=== PATIENT | male | born 1960 | race Caucasian/White ===

== ENCOUNTER 2019-08-16 12:57 | Observation (INO) | payer BC ==
--- NOTE | 2019-08-02 16:46 | HP ---
HISTORY AND PHYSICAL: DATE OF ADMISSION/SURGERY: 08/16/19 DATE OF OFFICE VISIT: 07/30/19 SURGEON: Marlys Hebert MD * (DICTATED BY RITESH LORA) PROCEDURE: Right total hip arthroplasty. CHIEF COMPLAINT: Right hip pain. HISTORY OF PRESENT ILLNESS: Mr. Aragon is a 59-year-old gentleman who has end -stage osteoarthritis of the right hip. He has failed conservative treatment and elected to proceed with a right total hip arthroplasty. PAST MEDICAL HISTORY: 1. GERD. 2. Hypertension. PAST SURGICAL HISTORY: 1. Right knee arthroscopy. 2. Left knee surgery. 3. Abdominal surgery. CURRENT MEDICATIONS: 1. Omeprazole 20 mg a day. 2. Lisinopril 10 mg a day. 3. Meloxicam 7.5 mg daily. 4. Tramadol 50 mg every 6 hours as needed. ALLERGIES: To PENICILLIN. FAMILY HISTORY: Cancer. SOCIAL HISTORY: This is a 59-year-old gentleman. He lives with his . He does not smoke, use drugs or alcohol. REVIEW OF SYSTEMS: A complete 14-point review of systems was reviewed with the patient. Positive for GERD. He denies history of DVT, PE, hepatitis, HIV, or anesthesia problems. PHYSICAL EXAMINATION GENERAL: He is well developed, well nourished, in no acute distress. VITAL SIGNS: He stands 69 inches tall, weighs 221 pounds. His blood pressure is 142/79, his heart rate is 103. HEENT: Normocephalic, atraumatic. NECK: Supple. No palpable lymph nodes. PULMONARY: The lungs are clear to auscultation bilaterally. CARDIO: Regular rate and rhythm. Strong S1, S2. ABDOMEN: Soft, nontender, nondistended. NEUROLOGICAL: He is alert and oriented x3. MUSCULOSKELETAL: Right lower extremity: The skin is intact. There are no open wounds or abrasions. He walks with an antalgic type gait, favoring his right hip. There is 20-degree flexion contracture of the hips bilaterally with 85 degrees of flexion reproducing severe groin pain, 0 degrees of internal rotation, 15 degrees of external rotation. He is able to dorsiflex, plantarflex. He has a 2+ dorsalis pedis pulse and intact sensation. ASSESSMENT AND PLAN: Mr. Aragon is a 59-year-old gentleman with severe end- stage osteoarthritis of the right hip. He has failed conservative treatment and elected to proceed with a right total hip arthroplasty. The surgery is scheduled for 08/16/[address] Hebert discussed the risks and benefits of the surgery at today's visit and all of his questions were answered. He will follow up with Dr. Hebert 2 weeks after the surgery. RITESH LORA [id number]/[facility] #: [id number] MTDCarla
[~2019-08-16 12:57] MED LIST: Buffered Lidocaine 1% SYRIN* 1 ML/SYRINGE INTRADERM ONE; Dexamethasone IV* 4 MG/ML 1 ML (4 MG) IV SLOW PU ONE; Famotidine IV* 10 MG/ML 2 ML (20 mg) IV ONE; Gabapentin CAP(*) 300 MG PO ONE; Lactated Ringers 1000 ML Bag* 1,000 ML IV SCH; Tranexamic Acid 1,000 MG in NS 0.9% 50 ML IV ONE; celeCOXIB CAP* 200 MG PO ONE
[2019-08-16] MEDS ORDERED: celeCOXIB CAP* 200 MG ONE (13:45)
[2019-08-16] MEDS ORDERED: Dexamethasone IV* 4 MG/ML 1 ML (4 MG) ONE (13:45)
[2019-08-16] MEDS ORDERED: Gabapentin CAP(*) 300 MG ONE (13:45)
[2019-08-16] MEDS ORDERED: ceFAZolin 2 GM PREMIX in ORs 0 GM/0 ML BAG ONE (13:46)
[2019-08-16] MEDS ORDERED: Famotidine IV* 10 MG/ML 2 ML (20 mg) ONE (13:46)
[2019-08-16] MEDS ORDERED: Buffered Lidocaine 1% SYRIN* 1 ML/SYRINGE INTRADERM ONE (13:46)
[2019-08-16] MEDS ORDERED: Clindamycin 900 MG/D5W BAG(*) 900 MG/50 ML BAG IVPB ONE (14:16)
[2019-08-16] MEDS ORDERED: KETAMINE HCL* 50 MG/ML 10 ML VIAL ONE (15:22)
[2019-08-16] MEDS ORDERED: fentaNYL* 50 MCG/ML 5 ML VIAL (250 MCG VIAL) ONE (15:22)
[2019-08-16] MEDS ORDERED: Midazolam* 1 MG/ML 5 ML VIAL (5 MG) ONE (15:22)
[2019-08-16] MEDS ORDERED: ROPIVACAINE 5 MG/ML 30 ML BTL (0.5%) ONE (15:31)
[2019-08-16] MEDS ORDERED: Lidocaine 2% PF * 5 ML VIAL ONE (15:34)
[2019-08-16] MEDS ORDERED: Propofol* 10 MG/ML 20 ML BTL ONE (15:34)
[2019-08-16] MEDS ORDERED: Rocuronium* 10 MG/ML VIAL ONE (15:34)
[2019-08-16] MEDS ORDERED: Phenylephrine 40 MCG/ML SYRINGE ONE (16:12)
[2019-08-16] MEDS ORDERED: Scopolamine 1.5 mg* PATCH TRANSDERM PRN (16:26)
[2019-08-16] MEDS ORDERED: oxyCODONE TAB* 5 MG TAB PO PRN (16:26)
[2019-08-16] MEDS ORDERED: Morphine 4 MG/ML VIAL (1 ml) 4 MG/ML VIAL IV PRN (16:26)
[2019-08-16] MEDS ORDERED: DiMENhydriNATE IV* 50 MG/ML VIAL IV PUSH PRN (16:26)
[2019-08-16] MEDS ORDERED: Naloxone* 0.4 MG/ML 1 ML VIAL IV PRN (16:26)
[2019-08-16] MEDS ORDERED: EPHEDrine (Pressors)* 50 MG/ML VIAL ONE (16:32)
[2019-08-16] MEDS ORDERED: Phenylephrine 10 MG/ML VIAL* 1 ML VIAL ONE (16:33)
[2019-08-16] MEDS ORDERED: Ondansetron INJ* 2 MG/ML VIAL IV PRN (16:46)
[2019-08-16] MEDS ORDERED: Ondansetron ODT TAB* 4 MG PO PRN (16:46)
[2019-08-16] MEDS ORDERED: Cyclobenzaprine TAB* 10 MG PO PRN (16:46)
[2019-08-16] MEDS ORDERED: diPHENhydraMINE IV* 50 MG/ML 1 ml VIAL (BENADRYL) IV PRN (16:46)
[2019-08-16] MEDS ORDERED: diPHENhydraMINE PO* 25 MG PO PRN (16:46)
[2019-08-16] MEDS ORDERED: Magnesium Hydroxide LIQ* 30 ML UDC PO PRN (16:46)
[2019-08-16] MEDS ORDERED: Morphine INJ* 2 MG/ML 1 ML SYRINGE (TWO MG - NEW SYRINGE VERSION) IV PRN (16:46)
[2019-08-16] MEDS ORDERED: oxyCODONE/Acetamin 5/325 MG* TAB PO PRN ×2 (16:46)
[2019-08-16] MEDS ORDERED: Morphine 10 MG/ML VIAL (1 ml) ONE (16:49)
[2019-08-16] MEDS ORDERED: Ondansetron INJ* 2 MG/ML VIAL ONE (17:10)
[2019-08-16] MEDS ORDERED: Glycopyrrolate IV* 0.2 MG/ML 1 ML VIAL ONE (17:10)
[2019-08-16] MEDS ORDERED: Neostigmine Methylsulfate* 3 MG/3 ML SYRINGE ONE (17:12)
[2019-08-16] MEDS ORDERED: fentaNYL* 50 MCG/ML 2 ML VIAL (100 MCG VIAL) ONE (18:24)
[2019-08-16] MEDS: fentaNYL* 50 MCG/ML 2 ML VIAL (100 MCG VIAL) IV PRN ×2 (18:27→18:57)
[2019-08-16] MEDS ORDERED: oxyCODONE TAB* 5 MG TAB ONE (19:31)
--- NOTE | 2019-08-16 20:41 | OP ---
Operative Report - Blank - Operative Report Date of Operation: 08/16/19 Note: EM SANTANA 1960 Date Of Surgery: 08/16/19 Marlys Hebert MD In [employer] Suspension Coordinator: Elda AWAD did help throughout the procedure with preparation of the hip, wound retraction, manipulation of the hip, and wound closure. Anesthesiologist: Maria Alejandra Navarro MD Anesthesia Type: General Preoperative Diagnosis: Right severe degenerative osteoarthritis of the hip Postoperative Diagnosis: As above with Acetabular subchondral cysts Procedure Performed: Right Total Hip Arthroplasty with acetabular bone grafting Complications: None Specimen: Femoral head and acetabular reamings sent to pathology. Hardware used: This is uncemented Jose Luis total hip arthroplasty hardware for the femur a size 7 accolade II with 127 degree neck femoral component, for the acetabulum a size 52E trident II tritanium cluster hole shell, 2 15 mm screws, for the insert a size 36E trident X3 polyethylene insert, and for the femoral head a size 36 - 5 ceramic [id number] femoral head. Brief history/Indication: EM SANTANA was known in clinic and had a history of severe right hip pain. He failed conservative treatment with anti- inflammatories, pain pills, intra-articular injections and physical therapy. He elected to undergo right total hip arthroplasty due to continued pain and decreased quality of life. Radiographs showed severe end stage osteoarthritis of the hip with bone on bone contact. Informed consent was obtained from the patient. He understood the risks of surgery included but were not limited to: bleeding, infection, damage to nearby structures, intraoperative fracture, nerve palsy, failure of the hardware, early loosening, stiffness or loss of motion, dislocation, leg length discrepancy, anesthesia complications, stroke, heart attack, blood clot and . He wished to proceed. Intra-Operative findings: Intraoperatively the patient was noted to have severe loss of cartilage of the acetabulum and femoral head. The femoral head was deformed and there were comminuted bone fragments in the joint. The acetabulum had extensive subchondral cysts in the anterior wall. Description of the Procedure: EM SANTANA was identified in the preanesthesia unit. His right hip was marked as the correct operative side. Informed consent was signed and placed in the chart. The patient was taken to the operating room and placed under anesthesia without complication. A villalobos catheter was placed. The patient was placed on the peg board with all bony prominences well padded. The right lower extremity was prepped and draped in the usual sterile fashion. Preoperative time -out was made to correctly identify the patient, side and site. Appropriate intraoperative antibiotics were given within one hour of incision. A standard posterior incision was made and carried sharply down to the lateral fascia. A new 10 blade was used to make an incision in the fascia in line with the skin incision. A charnley retractor was placed. The piriformis and conjoined tendons were identified and elevated off the posterolateral femur using electrocautery. These were tagged with number 5 Ethibond. Next electrocautery was used to make a posterolateral capsular flap and this was tagged with number 5 Ethibonds. The hip was carefully dislocated. Lesser trochanter to the center of the femoral head was measured at 57 mm. The oscillating saw was used to make the femoral neck cut. The femoral head was carefully removed. The femoral head was severely worn and deformed. There were multiple bony fragments in the joint. The femur was retracted anteriorly and the acetabular retractors were placed. Long-handled knife was used to sharply remove any remaining labrum from the acetabular rim. The acetabulum was sequentially reamed up to a size 52. A bleeding subchondral bone bed was obtained. A trial liner was placed and had excellent fit and stability. There was an extensive anterior subchondral cyst. Acetabular reamings and femoral head autograft was used to pack the cystic area. A 52E cup with 2 screws was placed and had excellent stability with appropriate anteversion and abduction angle. A size 36E polyethylene liner was impacted into the acetabular shell. The liner was checked for stability and was stable. Next attention was turned to preparation of the femoral canal. A canal finder was used to enter the proximal femur. The femoral canal was sequentially broached up to a size 7 femoral broach trial. A trial neck and 36 - 5 trial femoral head was chosen. Lesser trochanter to center of the femoral head measurement was satisfactory. The hip was reduced and taken through a range of motion. The hip was stable in all positions with good soft tissue tension and appropriate leg lengths. The hip was dislocated and all trials were removed. The final implant chosen was a accolade II size 7. This stem was impacted into the femoral canal without difficulty. The stem was stable with appropriate anteversion. The femoral head chosen was a 36 - 5 ceramic head. The head was impacted onto the femoral neck without difficulty. The final lesser trochanter to center of the femoral head measurement was satisfactory. The hip was reduced and taken through a range of motion. The hip was stable in all positions with good soft tissue tension and appropriate leg lengths. The hip was copiously irrigated with sterile saline. The previously tagged capsule and tendons were repaired to the posterolateral femur through two trochanteric drill holes. The lateral fascia layer was closed using number 1 vicryls. The rest of the incision was closed in a layered fashion using 0 and 2-0 vicryls. The skin was closed using 3-0 monocryl suture and Dermabond. Sterile adaptic, 4x4s and paper tape was used to cover the incision. The patients anesthesia was reversed without difficulty. He was taken to the PACU in stable condition. Intended weight-bearing will be as tolerated with posterior hip precautions.
[2019-08-16] MEDS ORDERED: Pantoprazole TAB * 40 MG TAB PO SCH ×2 (21:00→23:00)
[2019-08-16] MEDS: Lactated Ringers 1000 ML Bag* 1,000 ML IV SCH (21:19)
--- NOTE | 2019-08-16 21:39 | CONS ---
CC: Dr. Marlys Hebert; Dr. Bert Delarosa * CONSULTATION REPORT: DATE OF CONSULT: 08/16/19 PRIMARY CARE PHYSICIAN: Dr. Delarosa. REFERRING PHYSICIAN: Dr. Marlys Hebert. REASON FOR CONSULTATION: Postop medical management. HISTORY OF PRESENT ILLNESS: This is a 59-year-old male with past medical history of osteoarthritis with end-stage arthritis of the right hip, status post right total hip replacement performed today, also history of some arrhythmia, initially was told was tachyarrhythmia but later was told it was bradyarrhythmia and was to be started on nadolol today postoperatively. The patient otherwise offers no symptoms. He still says that he does not feel completely back to his baseline as he was examined in the postanesthesia care unit, but he was completely oriented, the was at bedside. The patient offers no complaints at this point. Denies any chest pain or shortness of breath. PAST MEDICAL HISTORY: History of hypertension, gastroesophageal reflux disease , chronic back pain due to scoliosis and ankylosing spondylitis, borderline diabetes and as mentioned, some cardiac workup which initially said was tachycardic but later was told that it was bradycardic and further supervisor hydrochloric area recommended the patient to be started on nadolol postoperatively. PAST SURGICAL HISTORY: Include right knee arthroscopy, left knee open surgery, exploratory laparotomy for abdominal pain 2 years ago to rule out any malignancies, right total hip performed today. HOME MEDICATIONS: Include: 1. Omeprazole 20 mg at bedtime. 2. Lisinopril 10 mg daily at bedtime. 3. Tramadol 50 mg p.o. b.i.d. 4. Meloxicam 7.5 mg oral daily. 5. Nadolol 20 mg to be started after surgery today. ALLERGIES: The patient is allergic to PENICILLIN, which causes severe throat swelling; LATEX, which causes rash; GRAPE JUICE causes hives and difficulty breathing; and environmental allergies causes itching and swelling and red watery eyes. FAMILY HISTORY: Mother of stomach cancer at age 71. Father at age 72 with prostate cancer. Sister at age 53 with ovarian cancer. SOCIAL HISTORY: He is a 59-year-old gentleman who lives with his . Denies any smoking, alcohol, or drug use and his , Roselia is his healthcare proxy and he is otherwise full code. REVIEW OF SYSTEMS: A 14-point review of systems did not reveal any information other than what is stated in the HPI. PHYSICAL EXAM: Vital signs postoperatively, BP was notably 116/82, heart rate 88, respiration rate 14, saturating 100% on 3 L nasal cannula, temperature was recorded at 96.8 with a maximum temperature today 98.1 upon arrival to the OR. Head and Neck Examination: Atraumatic, normocephalic. Bilateral pupils are reactive. Oral mucosa was moist. Neck: Supple. No jugular venous distention. Heart Examination: S1, S2. Regular rate and rhythm. Lungs: Clear to auscultation bilaterally. No wheezing, rhonchi, or rales. Abdomen: Soft, nontender, nondistended. Extremities: No cyanosis, clubbing, or edema. DIAGNOSTIC STUDIES/LAB DATA: No labs were performed today. Imaging: The patient had a hip x-ray intraoperatively, which just shows intraoperative controlled film and postoperative hip x-rays suggest hip was aligned properly according to Dr. Hebert who was also at bedside during my evaluation. IMPRESSION: This is a 59-year-old gentleman with history of hypertension and some cardiac arrhythmia, was to be started on nadolol today and osteoarthritis, status post right hip replacement and chronic back pain due to scoliosis and ankylosing spondylitis, here for postoperative blood pressure management. ASSESSMENT: 1. Osteoarthritis, status post right total hip. Rest of the care per Ortho. 2. History of hypertension and cardiac arrhythmia, to be started on nadolol. For now, we will hold the lisinopril and monitor blood pressure. We will also place the patient on the pattern painter to rule out any cardiac arrhythmia or drop in his heart rate given this is a new medication that he is being started on. We will monitor his blood pressure and his heart rate and titrate blood pressure medications accordingly. 3. History of gastroesophageal reflux disease. Restart his omeprazole. 4. DVT prophylaxis, on Eliquis per Ortho. 5. Code status: Full code. [id number]/[facility] #: [id number] MTDD
[2019-08-16] MEDS: Docusate CAP* 100 MG PO SCH (23:02)
[2019-08-16] MEDS: Acetaminophen TAB* 325 MG PO SCH (23:03)
[2019-08-16] MEDS: Magnesium Hydroxide LIQ* 30 ML UDC PO SCH (23:06)
[2019-08-16] MEDS: Nadolol TAB* 40 MG PO SCH (23:30)
[2019-08-16] MEDS: Clindamycin 600 MG/D5W BAG(*) 600 MG/50 ML BAG IV SCH (23:56)
[2019-08-17 06:51] LABS: Hematocrit 37 % (42-52); Hemoglobin 12.7 g/dL (14.0-18.0); Mean Platelet Volume 10.5 fL (7.4-10.4); Platelet Count 165 10^3/uL (150-450)
[2019-08-17 07:07] LABS: BUN/Creatinine Ratio 16.3 (8-20); Calcium 9.2 mg/dL (8.6-10.3); EGFR African American 94.1 (>60); EGFR Non-African American 77.8 (>60); Potassium 4.3 mmol/L (3.5-5.0)
[2019-08-17] MEDS: Acetaminophen TAB* 325 MG PO SCH ×2 (07:10→12:24)
--- NOTE | 2019-08-17 08:10 | PN ---
Progress Note - Progress Note Date of Service: 08/17/19 SOAP: Subjective: Pt. is alert, pain is moderate. Objective: Vital Signs: Temp Pulse Resp BP Pulse Ox 97.2 F 71 17 107/47 98 08/17/19 07:39 08/17/19 07:39 08/17/19 07:39 08/17/19 07:39 08/17/19 07:39 Laboratory Results - last 24 hr 08/17/19 08/17/19 06:27 06:29 Hgb 12.7 L Hct 37 L Plt Count 165 MPV 10.5 H Sodium 136 Potassium 4.3 Chloride 102 Carbon Dioxide 30 Anion Gap 4 BUN 16 Creatinine 0.98 Est GFR ( Amer) 94.1 Est GFR (Non-Af Amer) 77.8 BUN/Creatinine Ratio 16.3 Glucose 136 H Calcium 9.2 RLE - thigh swollen but soft. dressing c/d/i. distally + df/pf, full sens lt. 2+ dp pulse. Assessment: 59 yo M pod 1 s/p RTHA Plan: eliquis bid pt/ot post hip precautions wbat plan d/c to home today with vns.
[2019-08-17] MEDS: Clindamycin 600 MG/D5W BAG(*) 600 MG/50 ML BAG IV SCH ×2 (08:20→15:24)
[2019-08-17] MEDS: Magnesium Hydroxide LIQ* 30 ML UDC PO SCH (08:20)
[2019-08-17] MEDS: Docusate CAP* 100 MG PO SCH (08:21)
[2019-08-17] MEDS: oxyCODONE TAB* 5 MG TAB PO PRN ×2 (08:22→12:24)
[2019-08-17] MEDS: Nadolol TAB* 40 MG PO SCH (08:22)
[2019-08-17] MEDS: Lactated Ringers 1000 ML Bag* 1,000 ML IV SCH (08:30)
[2019-08-17] MEDS ORDERED: Vitamin THERAPEUTIC TAB PO SCH (09:00)
[2019-08-17] MEDS ORDERED: Apixaban* 2.5 MG TAB PO SCH (09:00)
[2019-08-17 09:58] LABS: HIV 4th Generation Nonreactive (Nonreactive)
[2019-08-17 10:04] LABS: Hepatitis B Surface Ab Not Immune (Immune)
[2019-08-17 10:05] LABS: Hepatitis C Antibody Negative (Negative)
[2019-08-17 10:42] LABS: Hepatitis B Surface Antigen Nonreactive (Nonreactive)
[2019-08-17 12:25] VITALS: BP 107/56
--- NOTE | 2019-08-17 20:41 | DS ---
DISCHARGE SUMMARY: DATE OF ADMISSION: 08/16/19 DATE OF DISCHARGE: 08/17/19 SURGEON: Marlys Hebert MD.* (DICTATED BY RITESH LORA) PRINCIPAL DIAGNOSIS: Right hip osteoarthritis. DISCHARGE DIAGNOSIS: Right hip osteoarthritis. DISCHARGE DISPOSITION: Discharged home in stable condition. HISTORY OF PRESENT ILLNESS: Mr. Aragon is a 59-year-old gentleman with severe end-stage osteoarthritis of the right hip. He has failed conservative treatment and elected to proceed with a right total hip arthroplasty. HOSPITAL COURSE: Mr. Aragon was admitted electively to the hospital on and underwent a right total hip arthroplasty. He tolerated the procedure well. Postoperatively, he was placed on Eliquis 2.5 mg every 12 hours for DVT prophylaxis. On postoperative day 1, his H and H was 12 and 37. At the time of discharge, he was afebrile, and he was ambulating well. His vital signs were stable. DISCHARGE MEDICATIONS: 1. Percocet 5/325 one to two tabs every 4 to 6 hours as needed for pain. 2. Colace 100 mg tabs 2 to 3 daily for constipation. 3. Flexeril 10 mg every 8 hours as needed for muscle spasms. 4. Eliquis 2.5 mg every 12 hours for 30 days. 5. Pepcid 20 mg daily. 6. Gabapentin 600 mg daily. 7. Nadolol 20 mg a day. 8. Protonix 40 mg a day. PHYSICAL EXAMINATION UPON DISCHARGE: He was afebrile. His vital signs were stable. His wound was clean and dry. He was ambulating well with the aid of a walker. He was able to dorsiflex and plantarflex with a 2+ dorsalis pedis pulse and intact sensation. DISCHARGE INSTRUCTIONS: He was discharged home. He was given Percocet for pain , Flexeril for muscle spasms, Colace for constipation, and Eliquis 2.5 mg to take twice a day for 30 days for DVT prophylaxis. He is going home with home VNS services through [facility] and getting home physical therapy. He is weightbearing as tolerated with posterior hip precautions, and Dr. Hebert will see him in clinic 2 weeks. RITESH LORA [id number]/[facility] #: [id number] ARLET
[2019-08-19] MEDS ORDERED: Scopolamine PATCH Remove* 1 NOTE MISC PATCH OFF ONE (16:28)
== END 2019-08-17 16:10 | disposition home or self-care (01) ==
LOC: OR 12:57 → SSU 16:46 → INTOOBSV 16:46 → UNDOADMIN 23:50 → SSU 23:50
PROVIDERS: ADMIT Orthopaedic Surgery Adult Reconstructive Orthopaedic Surgery; ATTEND Orthopaedic Surgery Adult Reconstructive Orthopaedic Surgery
DX: M16.11 Unilateral primary osteoarthritis, right hip (principal); K21.9 Gastro-esophageal reflux disease without esophagitis; I10 Essential (primary) hypertension; Z88.0 Allergy status to penicillin; M54.9 Dorsalgia, unspecified; R00.0 Tachycardia, unspecified; Z79.899 Other long term (current) drug therapy; Z79.01 Long term (current) use of anticoagulants; M41.9 Scoliosis, unspecified
CPT/HCPCS: 36415; 80048; 85014; 85018; 85049; 86706; 86803; 87340; 87389; 88304; 88311; 96365; 96366; 96375; 96376; A9270-GY; C1713; C1776; G0378; J0690; J1100; J2250; J2270; J2405; J2704; J2710; J2795; J3010

== ENCOUNTER 2019-09-27 11:11 | Inpatient (IN) | payer BC ==
--- NOTE | 2019-09-11 18:39 | HP ---
HISTORY AND PHYSICAL: DATE OF ADMISSION: 09/27/19 ATTENDING PROVIDER: Dr. Hebert * (DICTATED BY RITESH LOPEZ) HISTORY OF PRESENT ILLNESS: Mr. Aragon is a 59-year-old male who has just underwent a right total hip arthroplasty but he continues to have severe left hip pain due to end-stage hip osteoarthritis. The left hip has become more and more painful since the initial surgery and he is having pain in the anterior portion of his thigh and groin. He has failed conservative management and would like to proceed with a left total hip arthroplasty at this point. PAST MEDICAL HISTORY: 1. Lumbar spine pain. 2. Bilateral knee osteoarthritis. 3. Hypertension. PAST SURGICAL HISTORY: 1. Left knee reconstruction. 2. Right knee arthroscopy. 3. Exploratory surgery of the stomach. 4. Right total hip arthroplasty. MEDICATIONS: 1. Omeprazole. 2. Lisinopril. 3. Meloxicam. 4. Tramadol. 5. Prostate Health. ALLERGIES: PENICILLIN causes trouble breathing. LATEX causes a rash. GRAPE JUICE causes trouble breathing. 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 He does not drink, does not smoke, and does not partake in illicit drug use. FAMILY HISTORY: Noncontributory. REVIEW OF SYSTEMS: General: The patient denies any fevers, chills or night sweats. No known anesthesia problems. HEENT: The patient denies any headaches , lightheadedness or syncopal episodes. Cardiothoracic: The patient denies any chest pain, heart palpitations or edema. Pulmonary: The patient denies any shortness of breath with exertion, chronic cough or COPD. GI: The patient denies any nausea, vomiting, diarrhea, or constipation. : The patient denies any nocturia, urinary frequency or urgency. MSK: The patient admits to chronic lower back pain. Neuro: The patient denies any paresthesias, numbness , or seizures. Integument: The patient denies any abrasions, lesions, rashes, lumps, or open sores. PHYSICAL EXAMINATION GENERAL: The patient is alert and oriented x3 with appropriate mood and affect , appropriately dressed and hygiene. HEENT: Normocephalic, atraumatic. Hearing and vision are grossly intact. PULMONARY: Lungs are clear to auscultation bilaterally with no wheezes, rales, or rhonchi. CARDIO: Regular rate and rhythm. Normal S1 and S2. No appreciable S3 or S4. No murmurs, rubs, or gallops. MSK: Left lower extremity: Inspection of the left hip reveals no erythema or ecchymosis. Skin is warm, dry, and intact. He has 85 degrees of flexion with pain and severe groin pain with that. He has 0 degrees of internal rotation and 15 degrees of external rotation with severe pain. He has difficulty with straight leg raising and abduction because of the pain. Distally, he has full sensation intact to light touch with 5/5 ankle dorsiflexion and plantarflexion strength. He has 2+ dorsalis pedis pulse. IMPRESSION: Severe end-stage left hip osteoarthritis. PLAN: To the OR for a left total hip arthroplasty to be performed by Dr. Marlsy Hebert on 09/27/19. Informed consent had been obtained at previous surgery and has been signed. He will follow up in 10 to 14 days after surgery for suture removal and followup. RITESH LOPEZ [id number]/[facility] #: [id number] ARLET
[~2019-09-27 11:11] MED LIST changes: +Acetaminophen TAB* 325 MG PO ONE; -Dexamethasone IV* 4 MG/ML 1 ML (4 MG) IV SLOW PU ONE; -Famotidine IV* 10 MG/ML 2 ML (20 mg) IV ONE; -Gabapentin CAP(*) 300 MG PO ONE; -Tranexamic Acid 1,000 MG in NS 0.9% 50 ML IV ONE; +Tranexamic Acid 1,000 MG in NS 0.9% 50 ML* (outpatient use) IV SCH
--- OUTSIDE RECORDS SUMMARY | 2019-09-27 11:16 | XMS REPORT | Continuity of Care Document ---
:1960 External Reference #:[id number] Author Name Marlys Hebert M.D. 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 Onset: 02/2019 region and thigh Social History Type Date Description Comments Sex Unknown ETOH Use Denies alcohol use Tobacco Use Start: Unknown Patient has never smoked Smoking Status Reviewed: 07/30/19 Patient has never smoked Exercise Type/Frequency Does not exercise Allergies, Adverse Reactions, Alerts Active Allergies Reaction Severity Comments Date Penicillin Severe 07/18/2019 Medications Active Medications SIG Qnty Indications Ordering Provider Date Omeprazole Bert Delarosa MD 20mg Capsules DR MazainoprBert Blanco MD 10mg Tablets Meloxicam Bert Delarosa MD 7.5mg Tablets Tramadol HCL take 1 tablet by Unknown 50mg Tablets mouth every 6 hours if needed for pain Prostate Health Unknown Capsules Immunizations Description No Information Available Vital Signs Date Vital Result Comment 07/30/2019 2:31pm Height 69 inches 5'9" Weight 221.00 lb Heart Rate 103 /min BP Systolic 142 mmHg BP Diastolic 79 mmHg Body Temperature 98.4 F Pain Level 10 BMI (Body Mass Index) 32.6 kg/m2 07/18/2019 8:50am Height 69 inches 5'9" Weight 226.00 lb Heart Rate 70 /min BP Systolic 136 mmHg BP Diastolic 90 mmHg Respiratory Rate 18 /min Body Temperature 98.4 F Pain Level 10 BMI (Body Mass Index) 33.4 kg/m2 Results Test Acquired Date Facility Test Result H/L Range Note CBC Auto 07/30/2019 [facility] White Blood 7.9 10^3/uL Normal 3.5-10.[address] [place] [address] [phone] Red Blood Count 4.88 10^6/uL Normal 4.18-5.48 Hemoglobin 14.8 g/dL Normal 14.0-18.0 Hematocrit 44 % Normal 42-52 Mean Corpuscular Volume 90 fL Normal 80-94 Mean Corpuscular Hemoglobin 30 pg Normal 27-31 Mean Corpuscular HGB Conc 34 g/dL Normal 31-36 Red Cell Distribution Width 13 % Normal 10-15 Platelet Count 206 10^3/uL Normal 150-450 Mean Platelet Volume 10.7 fL High 7.4-10.4 Abs Neutrophils 5.2 10^3/uL Normal 1.5-7.7 Abs Lymphocytes 2.0 10^3/uL Normal 1.0-4.8 Abs Monocytes 0.6 10^3/uL Normal 0-0.8 Abs Eosinophils 0.1 10^3/uL Normal 0-0.6 Abs Basophils 0.0 10^3/uL Normal 0-0.2 Abs Nucleated RBC 0.0 10^3/uL Granulocyte % 65.8 % Lymphocyte % 25.1 % Monocyte % 7.3 % Eosinophil % 1.2 % Basophil % 0.6 % Nucleated Red Blood Cells % 0.1 Inr/Protime 07/30/2019 [facility] Inr 1.08 Normal 0.82-1.[address] [place] [address] [phone] Laboratory test 07/30/2019 [facility] Partial 29.0 Normal 26.0 -38.0 finding [address] [facility] [place] [address] Time PTT [phone] Urinalysis 07/30/2019 [facility] Urine Color Yellow Profile [address] [place] [address] [phone] Urine Appearance Clear Urine Specific Henley 1.027 Normal 1.010-1.030 Urine pH 5.0 Normal 5-9 Urine Urobilinogen Negative Negative Urine Ketones 1+ Abnormal Negative Urine Protein Negative Negative Urine Leukocytes Negative Negative Urine Blood Negative Negative Urine Nitrite Negative Negative Urine Bilirubin Negative Negative Urine Glucose Negative Negative Comp Metabolic 07/30/2019 [facility] Sodium 138 mmol/L Normal 135-[address] [place] [address] [phone] Potassium 4.4 mmol/L Normal 3.5-5.0 Chloride 102 mmol/L Normal 101-111 Co2 Carbon Dioxide 28 mmol/L Normal 22-32 Anion Gap 8 mmol/L Normal 2-11 Glucose 105 mg/dL High 70-100 Blood Urea Nitrogen 26 mg/dL High 6-24 Creatinine 1.17 mg/dL Normal 0.67-1.17 BUN/Creatinine Ratio 22.2 High 8-20 Calcium 10.3 mg/dL Normal 8.6-10.3 Total Protein 7.0 g/dL Normal 6.4-8.9 Albumin 4.5 g/dL Normal 3.2-5.2 Globulin 2.5 g/dL Normal 2-4 Albumin/Globulin Ratio 1.8 Normal 1-3 Total Bilirubin 0.90 mg/dL Normal 0.2-1.0 Alkaline Phosphatase 84 U/L Normal 34-104 Alt 12 U/L Normal 7-52 Ast 14 U/L Normal 13-39 Egfr Non- 63.4 >60 Egfr 76.7 >60 2 Type & Screen 07/30/2019 [facility] Patient Blood Type AB Positive [address] [place] [address] [phone] Antibody Screen NEGATIVE Urine Culture And 07/30/2019 [facility] Urine Culture SEE RESULT [address] [place] [address] [phone] 1 Standard intensity warfarin therapeutic range: 2.0-3.0 High intensity warfarin therapeutic range: 2.5-3.5 2 Because ethnic data is not always readily available, this report includes an eGFR for both -Americans and non- Americans. The National Kidney Disease Education Program (NKDEP) does not endorse the use of the MDRD equation for patients that are not between the ages of 18 and 70, are , have extremes of body size, muscle mass, or nutritional status, or are non- or non-. According to the National Kidney Foundation, irrespective of diagnosis, the stage of the disease is based on the level of kidney function: Stage Description GFR(mL/min/1.73 m(2)) 1 Kidney damage with normal or decreased GFR 90 2 Kidney damage with mild decrease in GFR 60-89 3 Moderate decrease in GFR 30-59 4 Severe decrease in GFR 15-29 5 Kidney failure <15 (or dialysis) 3 SEE RESULT BELOW Name: EM SANTANA : [address]: Marlys Hebert MD Acct: [id number] Unit: [id number] AGE: 59 Location: [facility] Re07/30/19 SEX: M Status: REG REF SPEC: [id number] JORDAN: 07/30/19 [facility] DR: Marlys Hebert MD REQ: [id number] RECD: 07/30/19 STATUS:COMP _ SOURCE: URINE SPDESC: ORDERED: Urine Culture Procedure Result Reported Site Urine Culture Final 07/31/19- 1613 ML No Growth (<1,000 CFU/mL) * ML - Main Lab . END OF REPORT DEPARTMENT OF PATHOLOGY, [address] [place] [address] Josué Rg M.D. Director [facility] # [id number] Procedures Description No Information Available Medical Devices Description No Information Available Encounters Type Date Location Provider Dx Diagnosis Office Visit 07/18/2019 [facility] Marlys Hebert, M25.551 Pain in right hip 8:30a at [place] [facility] M25.552 Pain in left hip M16.0 Bilateral primary osteoarthritis of hip Assessments Date Code Description Provider 07/30/2019 M25.551 Pain in right hip Marlys Hebert M.D. 07/30/2019 M16.0 Bilateral primary osteoarthritis of hip Marlys Hebert M.D. 07/18/2019 Kapil5.551 Pain in right hip Marlys Hebert M.D. 07/18/2019 M25.552 Pain in left hip Marlys Hebert M.D. 07/18/2019 M16.0 Bilateral primary osteoarthritis of hip Marlys Hebert M.D. Plan of Treatment Future Appointment(s):09/03/2019 9:45 am - Marlys Hebert M.D. at [facility] at Pjemfr2607/30/2019 - Marlys Hebert M.D.M25.551 Pain in right hipFollow up:Follow up: 2 weeks after [id number] Bilateral primary osteoarthritis of hip Functional Status Description No Information Available Mental Status Description No Information Available Referrals Description No Information Available
--- OUTSIDE RECORDS SUMMARY | 2019-09-27 11:16 | XMS REPORT | Continuity of Care Document ---
:1960 External Reference #:[id number] Author Name Marlys Hebert M.D. (transmitted by agent of provider Luanne Bedoya) Address [address] [place] [address] [place] [address] Care Team Providers Name Role Phone Bert Delarosa MD - Internal Medicine Care Team Information Hospital Orderly Problems Active Problems Provider Date Localized, primary osteoarthritis of the pelvic Marlys Hebert M.D. Onset: 02/2019 region and thigh Social History Type Date Description Comments Sex Unknown ETOH Use Denies alcohol use Tobacco Use Start: Unknown Patient has never smoked Smoking Status Reviewed: 09/03/19 Patient has never smoked Exercise Type/Frequency Does not exercise Allergies, Adverse Reactions, Alerts Active Allergies Reaction Severity Comments Date Penicillin Severe 07/18/2019 Medications Active Medications SIG Qnty Indications Ordering Date Provider Percocet 1-2 by mouth 70tabs Marlys Hebert, 08/17/2019 5-325mg Tablets every 4-6 hours M.D. as needed pain Cyclobenzaprine HCL take 1 tab by 90tabs Marlys Hebert, 08/17/2019 10mg mouth 2-3 times M.D. Tablets a day as needed Eliquis take one tab by 60tabs Marlys Hebert, 08/17/2019 2.5mg Tablets mouth twice M.D. daily x 4 weeks Colace 1 tab by mouth 90caps Marlys Hebert, 08/17/2019 100mg Capsules 2-3 times a day M.D. as needed Omeprazole Bert Delarosa, 20mg Capsules DR FERREIRA Lisinopril Bert Delarosa, 10mg Tablets MeloxicBert Silva, 7.5mg Tablets Tramadol HCL take 1 tablet Unknown 50mg Tablets by mouth every 6 hours if needed for pain Prostate Health Unknown Capsules Immunizations Description No Information Available Vital Signs Date Vital Result Comment 09/03/2019 9:18am Height 67.75 inches 5'7.75" Weight 221.75 lb Heart Rate 66 /min BP Systolic 116 mmHg BP Diastolic 78 mmHg Respiratory Rate 12 /min Body Temperature 97.3 F Pain Level 2 BMI (Body Mass Index) 34.0 kg/m2 07/30/2019 2:31pm Height 69 inches 5'9" Weight 221.00 lb Heart Rate 103 /min BP Systolic 142 mmHg BP Diastolic 79 mmHg Body Temperature 98.4 F Pain Level 10 BMI (Body Mass Index) 32.6 kg/m2 Results Test Acquired Date Facility Test Result H/L Range Note CBC Auto 07/30/2019 [facility] White Blood 7.9 10^3/uL Normal 3.5-10.[address] [place], [place] [address] [phone] Red Blood Count 4.88 10^6/uL Normal 4.18-5.48 [...] Red Blood Cells % 0.1 Inr/Protime 07/30/2019 [facility] Inr 1.08 Normal 0.82-1.[address] [place] [address] [phone] Laboratory test 07/30/2019 [facility] Partial 29.0 Normal 26.0 -38.[address] [place] [address] Time PTT [phone] Urinalysis 07/30/2019 [facility] Urine Color Yellow Profile [address] [place] [address] [phone] Urine Appearance Clear Urine Specific Bor[place] 1.027 Normal 1.010-1.030 Urine pH 5.0 Normal 5-9 Urine Urobilinogen Negative Negative Urine Ketones 1+ Abnormal Negative Urine Protein Negative Negative Urine Leukocytes Negative Negative Urine Blood Negative Negative Urine Nitrite Negative Negative Urine Bilirubin Negative Negative Urine Glucose Negative Negative Comp Metabolic 07/30/2019 [facility] Sodium 138 mmol/L Normal 135-[address] [place] [address] [phone] Potassium 4.4 mmol/L Normal 3.5-5.0 Chloride 102 [...] 76.7 >60 2 Type & Screen 07/30/2019 [facility] Patient Blood Type AB Positive [address] [place] [address] [phone] Antibody Screen NEGATIVE Urine Culture And 07/30/2019 [facility] Urine Culture SEE RESULT [address] [place] [address] [phone] 1 Standard intensity warfarin therapeutic range: 2.0-3.0 [...] [address]: Marlys Hebert MD Acct: [id number] Unit: [id number] AGE: 59 Location: [facility] Re07/30/19 SEX: M Status: REG REF SPEC: [id number] JORDAN: 07/30/19-[address] [facility] [address]: Marlys Hebert MD REQ: [id number] RECD: 07/30/19 STATUS:COMP _ SOURCE: URINE SPDESC: ORDERED: Urine Culture Procedure Result Reported Site Urine Culture Final 07/31/19- 1613 ML No Growth (<1,000 CFU/mL) * ML - Main Lab . END OF REPORT DEPARTMENT OF PATHOLOGY, [address] [place] [address] Josué Rg M.D. Director [facility] # [id number] Procedures Date Code Description Status 08/16/2019 79806 THR Total Hip Replacement Completed 08/16/2019 56574 THR Total Hip Replacement Completed Medical Devices Description No Information Available Encounters Type Date Location Provider Dx Diagnosis Office Visit 08/16/2019 [facility] Eleanor Lutz, I10 Essential ( primary) 10:20a aramis Dill M.D. hypertension Hospitalists I49.9 Cardiac arrhythmia, unspecified Office Visit 07/18/2019 8:30a [facility] Marlys Hebert, M25.551 Pain in right at [place] M.DRose hip M25.552 Pain in left hip M16.0 Bilateral primary osteoarthritis of hip Assessments Date Code Description Provider 09/03/2019 M16.11 Unilateral primary osteoarthritis, Marlys Hebert M.D. right hip 09/03/2019 Z96.641 Presence of right artificial hip Marlys Hebert M.D. joint 09/03/2019 M25.552 Pain in left hip Marlys Hebert M.D. 09/03/2019 M16.12 Unilateral primary osteoarthritis, Marlys Hebert M.D. left hip 08/16/2019 I10 Essential (primary) hypertension Eleanor Lutz M.D. 08/16/2019 M16.11 Unilateral primary osteoarthritis, [facility] HRose Raygoza , RPA-C right hip 08/16/2019 I49.9 Cardiac arrhythmia, unspecified Eleanor Lutz M.D. 08/16/2019 M16.11 Unilateral primary osteoarthritis, Marlsy Hebert M.D. right hip 07/30/2019 M25.551 Pain in right hip Marlys Hebert M.D. 07/30/2019 M16.0 Bilateral primary osteoarthritis of Marlys Hebert M.D. hip 07/18/2019 M25.551 Pain in right hip Marlys Hebert M.D. 07/18/2019 M25.552 Pain in left hip Marlys Hebert M.D. 07/18/2019 M16.0 Bilateral primary osteoarthritis of Marlys Hebert M.D. hip Plan of Treatment 09/03/2019 - Marlys Hebert M.D.M16.11 Unilateral primary osteoarthritis, right hipFollow up:Follow up:Z96.641 Presence of right artificial hip dqfcnM40.552 Pain in left hipFollow up:Follow up: 7-10 days before ttbbwtfF36.12 Unilateral primary osteoarthritis, left hip Functional Status Description No Information Available Mental Status Description No Information Available Referrals Description No Information Available
--- OUTSIDE RECORDS SUMMARY | 2019-09-27 11:16 | XMS REPORT | Continuity of Care Document ---
:1960 External Reference #:[id number] Author Name Marlys Hebert M.D. 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 07/30/2019 M16.0 Bilateral primary osteoarthritis of hip Marlys Hebert M.D. 07/18/2019 M25.551 Pain in right hip Marlys Hebert M.D. 07/18/2019 M25.552 Pain in left hip Marlys Hebert M.D. 07/18/2019 M16.0 Bilateral primary osteoarthritis of hip Marlys Hebert M.D. Plan of Treatment Future Appointment(s):09/03/2019 9:45 am - Marlys Hebert M.D. at [facility] at [id number]/16/2019 2:30 pm - Marlys Hebert M.D. at [facility] at [id number]/30/2019 - Marlys Hebert M.D.M25.551 Pain in right hipFollow up:Follow up: 2 weeks after [id number] Bilateral primary osteoarthritis of hip Functional Status Description No Information Available Mental Status Description No Information Available Referrals Description No Information Available
[2019-09-27] MEDS ORDERED: Midazolam* 1 MG/ML 2 ML VIAL (2 MG) ONE (12:29)
[2019-09-27] MEDS ORDERED: fentaNYL* 50 MCG/ML 2 ML VIAL (100 MCG VIAL) ONE ×3 (12:29→15:46)
[2019-09-27] MEDS ORDERED: Acetaminophen TAB* 325 MG ONE (12:31)
[2019-09-27] MEDS ORDERED: celeCOXIB CAP* 200 MG ONE (12:32)
[2019-09-27] MEDS ORDERED: Clindamycin 900 MG/D5W BAG(*) 900 MG/50 ML BAG IVPB ONE (12:32)
[2019-09-27] MEDS ORDERED: Naloxone* 0.4 MG/ML 1 ML VIAL IV PRN (13:35)
[2019-09-27] MEDS ORDERED: Rocuronium* 10 MG/ML VIAL ONE ×2 (13:56→14:29)
[2019-09-27] MEDS ORDERED: ROPIVACAINE 5 MG/ML 30 ML BTL (0.5%) ONE (14:14)
[2019-09-27] MEDS ORDERED: Propofol* 10 MG/ML 20 ML BTL ONE (14:52)
[2019-09-27] MEDS ORDERED: Dexamethasone IV* 4 MG/ML 1 ML (4 MG) ONE (14:52)
[2019-09-27] MEDS ORDERED: Ondansetron INJ* 2 MG/ML VIAL ONE (15:27)
[2019-09-27] MEDS ORDERED: Sugammadex * 200 MG/2 ML VIAL IV PUSH ONE (15:42)
[2019-09-27] MEDS ORDERED: EPHEDrine (Pressors)* 50 MG/ML VIAL ONE (15:51)
[2019-09-27] MEDS ORDERED: oxyCODONE TAB* 5 MG TAB PO PRN (16:23)
[2019-09-27] MEDS ORDERED: diPHENhydraMINE IV* 50 MG/ML 1 ml VIAL (BENADRYL) IV PRN (16:23)
[2019-09-27] MEDS ORDERED: Ondansetron ODT TAB* 4 MG PO PRN (16:23)
[2019-09-27] MEDS ORDERED: Ondansetron INJ* 2 MG/ML VIAL IV PRN (16:23)
[2019-09-27] MEDS ORDERED: diPHENhydraMINE PO* 25 MG PO PRN (16:23)
[2019-09-27] MEDS ORDERED: Magnesium Hydroxide LIQ* 30 ML UDC PO PRN (16:23)
[2019-09-27] MEDS ORDERED: oxyCODONE/Acetamin 5/325 MG* TAB PO PRN (16:23)
[2019-09-27] MEDS ORDERED: Acetaminophen TAB* 325 MG PO PRN (16:23)
[2019-09-27] MEDS ORDERED: Morphine INJ* 2 MG/ML 1 ML SYRINGE (TWO MG - NEW SYRINGE VERSION) IV PRN (16:23)
[2019-09-27] MEDS ORDERED: HYDROmorphone INJ1* 1 MG/ML SYRINGE ONE (16:32)
[2019-09-27] MEDS: HYDROmorphone INJ1* 1 MG/ML SYRINGE IV PRN ×2 (16:35→16:46)
[2019-09-27] MEDS ORDERED: oxyCODONE/Acetamin 5/325 MG* TAB ONE (17:00)
[2019-09-27] MEDS: oxyCODONE/Acetamin 5/325 MG* TAB PO PRN ×2 (17:01→21:03)
--- NOTE | 2019-09-27 17:43 | OP ---
Operative Report - Blank - Operative Report Date of Operation: 09/27/19 Note: EM SANTANA 1960 Date Of Surgery: 09/27/19 Marlys Hebert MD Eye Glass Frame Polisher: Nawaf AWAD did help throughout the procedure with preparation of the hip, wound retraction, manipulation of the hip, and wound closure. Anesthesiologist: Dr. Kunz Anesthesia Type: Spinal Preoperative Diagnosis: Left severe degenerative osteoarthritis of the hip Postoperative Diagnosis: As above Procedure Performed: Left Total Hip Arthroplasty Complications: None Specimen: Femoral head and acetabular reamings sent to pathology. Hardware used: This is uncemented [place] total hip arthroplasty hardware for the femur a size 7 accolade II with 127 neck angle femoral component, for the acetabulum a size 54E trident II tritanium cluster hole shell with one 20mm screw, for the insert a size 36E trident X 3 polyethylene insert, and for the femoral head a size 36 - 2.5 ceramic biolox V40 femoral head. Brief history/Indication: EM SANTANA was known in clinic and had a history of severe left hip pain. He failed conservative treatment with anti- inflammatories, pain pills, intra-articular injections and physical therapy. He elected to undergo left total hip arthroplasty due to continued pain and decreased quality of life. Radiographs showed severe end stage osteoarthritis of the hip with bone on bone contact. Informed consent was obtained from the patient. He understood the risks of surgery included but were not limited to: bleeding, infection, damage to nearby structures, intraoperative fracture, nerve palsy, failure of the hardware, early loosening, stiffness or loss of motion, dislocation, leg length discrepancy, anesthesia complications, stroke, heart attack, blood clot and . He wished to proceed. Intra-Operative findings: Intraoperatively the patient was noted to have severe loss of cartilage of the acetabulum and femoral head. 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 Description of the Procedure: EM SANTANA was identified in the preanesthesia unit. His left hip was marked as the correct operative side. Informed consent was signed and placed in the chart. The patient was taken to the operating room and placed under anesthesia without complication. A villalobos catheter was placed. The patient was placed on the peg board with all bony prominences well padded. The left lower extremity was prepped and draped in the usual sterile fashion. Preoperative time -out was made to correctly identify the patient, side and site. Appropriate intraoperative antibiotics were given within one hour of incision. A standard posterior incision was made and carried sharply down to the lateral fascia. A new 10 blade was used to make an incision in the fascia in line with the skin incision. A charnley retractor was placed. The piriformis and conjoined tendons were identified and elevated off the posterolateral femur using electrocautery. These were tagged with number 5 Ethibond. Next electrocautery was used to make a posterolateral capsular flap and this was tagged with number 5 Ethibonds. The hip was carefully dislocated. Lesser trochanter to the center of the femoral head was measured at 60 mm. The oscillating saw was used to make the femoral neck cut. The femoral head was carefully removed. The femur was retracted anteriorly and the acetabular retractors were placed. Long-handled knife was used to sharply remove any remaining labrum from the acetabular rim. The acetabulum was sequentially reamed up to a size 54. A bleeding subchondral bone bed was obtained. A trial liner was placed and had excellent fit and stability. A 54E cup with one screw was placed and had excellent stability with appropriate anteversion and abduction angle. A size 36E liner was impacted into the acetabular shell. The liner was checked for stability and was stable. Next attention was turned to preparation of the femoral canal. A canal finder was used to enter the proximal femur. The femoral canal was sequentially broached up to a size 7 femoral broach trial. A trial neck and 36 - 2.5 trial femoral head was chosen. Lesser trochanter to center of the femoral head measurement was satisfactory. The hip was reduced and taken through a range of motion. The hip was stable in all positions with good soft tissue tension and appropriate leg lengths. The hip was dislocated and all trials were removed. The final implant chosen was a accolade size 7. This stem was impacted into the femoral canal without difficulty. The stem was stable with appropriate anteversion. The femoral head chosen was a 36 - 2.5 ceramic head. The head was impacted onto the femoral neck without difficulty. The final lesser trochanter to center of the femoral head measurement was satisfactory. The hip was reduced and taken through a range of motion. The hip was stable in all positions with good soft tissue tension and appropriate leg lengths. The hip was copiously irrigated with sterile saline. The previously tagged capsule and tendons were repaired to the posterolateral femur through two trochanteric drill holes. The lateral fascia layer was closed using number 1 vicryls. The rest of the incision was closed in a layered fashion using 0 and 2-0 vicryls. The skin was closed using 3-0 monocryl suture and Dermabond. Sterile adaptic, 4x4s and paper tape was used to cover the incision. The patients anesthesia was reversed without difficulty. He was taken to the PACU in stable condition. Intended weight-bearing will be as tolerated with posterior hip precautions.
[2019-09-27] MEDS: Lactated Ringers 1000 ML Bag* 1,000 ML IV SCH (18:00)
[2019-09-27] MEDS: Cyclobenzaprine TAB* 10 MG PO PRN (18:29)
--- NOTE | 2019-09-27 20:38 | CONS ---
CC: Dr. Bert Russo; Dr. Marlys Hebert * CONSULTATION REPORT: DATE OF CONSULT: 09/27/19 PRIMARY CARE PROVIDER: Dr. Bert Russo. ATTENDING PHYSICIAN: Dr. Eleanor Lutz (dictated by RITESH Valera). REQUESTING PHYSICIAN IN CONSULTATION: Dr. Marlys Hebert. REASON FOR CONSULTATION: Co-medical management. HISTORY OF PRESENT ILLNESS: Mr. Aragon is a 59-year-old male with a past medical history of hypertension, GERD, and chronic low back pain who [place] [facility] [place] elective left total hip arthroplasty. He is seen postoperatively in the PACU. He reports left hip and lower back pain, reported at 8/10. He has no other complaints today. He denies dizziness, lightheadedness, vision changes, chest pain, shortness of breath, cough, fever, chills, abdominal pain, nausea, vomiting, diarrhea, constipation. PAST MEDICAL HISTORY: 1. Hypertension. 2. GERD. 3. Chronic low back pain. 4. Osteoarthritis, bilateral knees. PAST SURGICAL HISTORY: Left knee reconstruction, right knee arthroplasty, exploratory abdominal lap, right total hip arthroplasty. HOME MEDICATIONS: 1. Cyclobenzaprine 10 mg p.o. q.6 hours p.r.n. 2. Jayshree-[place] Plus Cold 1 cap p.o. b.i.d. p.r.n. 3. Lisinopril 10 mg p.o. at bedtime. 4. Nadolol 20 mg p.o. at bedtime. 5. Omeprazole 20 mg p.o. at bedtime. 6. Oxycodone 5/325 one to two tabs p.o. q.4 hours p.r.n., MDD 10. DRUG ALLERGIES: PENICILLIN, LATEX, SEASONAL ALLERGIES, GRAPE JUICE. FAMILY HISTORY: Sister, ovarian cancer. Father, prostate cancer. Mother, stomach cancer. No family history of heart disease, CVA, diabetes mellitus. SOCIAL HISTORY: The patient denies current or former use of tobacco. He does not drink or use illicit drugs. 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 He lives with his spouse. In the event that he is unable to make his own medical decisions, he has appointed his , Roselia Aragon, to be his surrogate decision maker. REVIEW OF SYSTEMS: A 14-point review of systems has been performed and all the pertinent positives and negatives are in the HPI, all other systems are negative. PHYSICAL EXAM: General: Mr. Aragon is a well-developed, well-nourished, obese, middle-aged white male who is sitting up in bed. He appears somewhat groggy and mildly uncomfortable. HEENT: PERRL. EOMI. Hearing is grossly intact. Oral mucous membranes are mildly dry. The pharynx is clear. The tongue is at midline. Palate elevates symmetrically. Cardiovascular: Regular rate and rhythm with S1, S2 present. No murmurs, rubs, clicks, or gallops. There is no JVD or peripheral edema. Pulmonary: Symmetrical chest expansion without use of accessory muscles. Clear to auscultation bilaterally anteriorly without rhonchi, wheezes, or rales. Abdomen: Obese. Bowel sounds in all quadrants. Soft, nontender to palpation. Musculoskeletal: Left hip with clean , dry, intact dressing in place. The patient reports decreased sensation in right compared to left. Pedal pulses intact bilaterally. Able to move digits distally. Neuro: The patient is awake. He is alert and oriented x3 with cranial nerves II through XII grossly intact. ASSESSMENT AND PLAN: Mr. Aragon is a 59-year-old male with a past medical history of hypertension, gastroesophageal reflux disease, chronic low back pain who [place] [facility] [place] an elective left total hip arthroplasty. The patient will be admitted for: 1. Left total hip arthroplasty. Management per Ortho team. Continue pain medication, bowel regimen, PT. Weightbearing as tolerated. 2. Hypertension. Continue home medications, lisinopril and nadolol, with hold parameters. 3. Chronic pain. Continue home medications, cyclobenzaprine and Percocet, plus additional medications for left hip pain per Ortho. 4. Gastroesophageal reflux disease. Continue omeprazole. 5. DVT prophylaxis: Per Ortho. Apixaban 2.5 mg p.o. b.i.d. 6. Code status: Full code. At this time, the hospitalist team will sign off. Please reconsult if any concerns arise. Thank you for involving us in the care of this patient. TIME SPENT: Approximately 30 minutes was spent on this consultation, greater than half that time was spent [id number] with the patient and his obtaining history, performing physical, and reviewing the plan of care. The case has been discussed with my attending, Dr. Lutz, who is in agreement with the plan of care. NAEEM CARBAJAL, RITESH [id number]/[facility] #: [id number] ARLET
[2019-09-27] MEDS ORDERED: Lisinopril TAB* 10 MG PO SCH (21:00)
[2019-09-27] MEDS ORDERED: Pantoprazole TAB * 40 MG TAB PO SCH (21:00)
[2019-09-27] MEDS: Docusate CAP* 100 MG PO SCH (21:03)
[2019-09-27] MEDS: Magnesium Hydroxide LIQ* 30 ML UDC PO SCH (21:04)
[2019-09-27] MEDS: Clindamycin 600 MG/D5W BAG(*) 600 MG/50 ML BAG IV SCH (22:21)
[2019-09-28] MEDS: oxyCODONE/Acetamin 5/325 MG* TAB PO PRN ×3 (04:45→13:08)
[2019-09-28] MEDS: Lactated Ringers 1000 ML Bag* 1,000 ML IV SCH (04:45)
[2019-09-28] MEDS: Clindamycin 600 MG/D5W BAG(*) 600 MG/50 ML BAG IV SCH ×2 (06:00→13:40)
[2019-09-28 06:39] LABS: Hematocrit 32 % (42-52); Hemoglobin 11.4 g/dL (14.0-18.0); Mean Platelet Volume 10.2 fL (7.4-10.4); Platelet Count 160 10^3/uL (150-450)
[2019-09-28 07:02] LABS: BUN/Creatinine Ratio 21.5 (8-20); Calcium 8.8 mg/dL (8.6-10.3); EGFR African American 99.9 (>60); EGFR Non-African American 82.6 (>60); Potassium 4.1 mmol/L (3.5-5.0)
[2019-09-28] MEDS: Cyclobenzaprine TAB* 10 MG PO PRN (08:40)
[2019-09-28] MEDS: Docusate CAP* 100 MG PO SCH (08:41)
[2019-09-28] MEDS: Magnesium Hydroxide LIQ* 30 ML UDC PO SCH (08:42)
[2019-09-28] MEDS ORDERED: Vitamin THERAPEUTIC TAB PO SCH (09:00)
[2019-09-28] MEDS ORDERED: Apixaban* 2.5 MG TAB PO SCH (09:00)
--- NOTE | 2019-09-28 10:29 | PN ---
Progress Note - Progress Note Date of Service: 09/28/19 SOAP: Subjective: [Pt was seen this am sitting in chair. States that he is doing well. Denies any chest pain, SOB, nausea or vomiting. Ready to go home today. ] Objective: [General: Pt is alert and oriented x3. NAD. MSK, LLE: Dressing of left hip is c/d/i. No drainage or erythema. Dressing was changed today. Incision is c/d/i. +df/pf. NVI distally. Calf soft and non tender. 2+ DP pulse. ] Vital Signs Temp 97.4 F 09/28/19 07:36 Pulse 69 09/28/19 07:36 Resp 18 09/28/19 08:42 BP 104/62 09/28/19 07:49 Pulse Ox 97 09/28/19 07:36 Intake & Output 09/27/19 09/28/19 09/28/19 18:59 06:59 18:59 Intake Total 1650 1530 Output Total 350 1600 100 Balance 1300 -70 -100 Weight 216 lb Intake: IV Fluids 1650 980 LR 1500 980 NS 100ML, Clindamycin 150 600MG IVPB 50 ABX - CLINDAMYCIN 50 Oral 500 Output: Urine 100 Rouse 100 1600 Estimated Blood Loss 250 Assessment: [POD LTHA ] Plan: [PT Percocet for pain relief Eliquis x 30 days DC home today after second PT appointment. ]
--- NOTE | 2019-09-28 10:31 | DS ---
Orthopedic Discharge Summary - Discharge Summary Date of Admission:09/27/19 Date of Discharge: 09/28/2019 Date of Surgery: 09/27/2019 Attending Orthopedic Provider: Dr. Hebert Pre-operative Diagnosis: Left hip osteoarthritis Operative Procedure: Left total hip arthroplasty Disposition of Patient: Home Condition of Patient: Good History: EM SANTANA is a 59 year old M with years of increasingly severe left hip pain. Patient has failed conservative management and has elected to undergo a left total hip replacement Hospital Course: EM was admitted to [facility] on 09/27/19. Patient underwent a left total hip arthroplasty without complication followed by a brief recovery in PACU and transfer to the Short Stay Surgical Unit in stable condition. Physical therapy and occupational therapy also participated in this patients care. Post-op day 1: patient was alert and in no acute distress. Dressing was clean, dry and intact. Operative extremity dorsiflexion and plantarflexion intact, sensation intact to light touch distally, DP2+. Dressing was changed, incision was clean, dry and intact. Patient was deemed to be medically and orthopedically stable for discharge. Physical therapy goals were met. Home Medications Medication Instructions Recorded Confirmed Type Lisinopril [Zestril] 10 mg PO BEDTIME 08/15/19 09/27/19 History Nadolol [Corgard] 20 mg PO QPM 08/15/19 09/27/19 History Omeprazole 20 mg PO BEDTIME 08/15/19 09/27/19 History Cyclobenzaprine TAB* [Flexeril 10 10 mg PO Q6H PRN #90 tab 08/17/19 09/27/19 Rx MG TAB*] Dm/PE/Acetaminophen/Chlorphenr 1 cap PO BID PRN 09/17/19 09/27/19 History [Jayshree-[place] Plus Cold &] oxyCODONE/Acetamin 5/325 MG* 1 - 2 tab PO Q4H PRN MDD 10 09/17/19 09/27/19 History [Percocet 5/325 TAB*] Discharge Instructions following Orthopedic Surgery: Activity: * Weight Bearing as tolerated * Continue physical therapy and occupational therapy exercises as shown Hip replacements: Continue Hip Precautions- do not cross legs or bend greater than 90 degrees/squat Wound care: * OK to shower on post-op day 3, no bathing, swimming, or submerging wound. * Use gentle soap, pat dry. Cover with gauze, SERJIO wrap or tape. * Visiting home nurse to do wound checks. Call Orthopedic office for: * Increased drainage * Redness * Increased pain * Fever Go to ER with shortness of breath or chest pain. Diet: * Regular diet * Increase fluids and fiber to prevent constipation. * Continue to use stool softeners, call office if no bowel motion within 48 hours. Medications See Home Medication List in your packet for medications that you should take after discharge. DVT Prophylaxis: Eliquis Dosin.5 mg, 1 tab every 12 hours x 30 days Pain Control: Percocet Dosin/325 mg 1-2 tabs by mouth every 4-6 hours as needed for pain. Maximum of 10 tabs per day. Please note that Percocet contains Tylenol (acetaminophen). Maximum daily dose of Tylenol is 4000 mg from all sources. Antibiotics are required prior to any dental work. FOLLOW UP: Follow up with Dr. Masood Hebert] Within 10-14 days, call for appointment Please call our office with any questions or concerns ([phone])
[2019-09-28 11:47] VITALS: BP 100/64
[2019-09-28] MEDS ORDERED: Nadolol TAB* 40 MG PO SCH (21:00)
== END 2019-09-28 14:22 | disposition home or self-care (01) | DRG 301 ==
LOC: AA 11:11 → SSU 16:23
PROVIDERS: ADMIT Orthopaedic Surgery Adult Reconstructive Orthopaedic Surgery; ATTEND Orthopaedic Surgery Adult Reconstructive Orthopaedic Surgery
PROC: 0SRB04A Replacement of Left Hip Joint with Ceramic on Polyethylene Synthetic Substitute, Uncemented, Open Approach (ICD-10-PCS; principal; 2019-09-27 14:00)
DX: M16.12 Unilateral primary osteoarthritis, left hip (principal); M87.852 Other osteonecrosis, left femur; Z96.641 Presence of right artificial hip joint; Z96.651 Presence of right artificial knee joint; M17.12 Unilateral primary osteoarthritis, left knee; G89.29 Other chronic pain; M54.5 Low back pain; I11.0 Hypertensive heart disease with heart failure; N18.9 Chronic kidney disease, unspecified; J30.2 Other seasonal allergic rhinitis; E66.9 Obesity, unspecified; K21.9 Gastro-esophageal reflux disease without esophagitis; Z91.040 Latex allergy status; Z88.0 Allergy status to penicillin; Z91.018 Allergy to other foods; Z68.32 Body mass index [BMI] 32.0-32.9, adult
CPT/HCPCS: 36415; 72170; 80048; 85014; 85018; 85049; 88304; 88311; A9270-GY; C1713; C1776; J1100; J1170; J2250; J2405; J2704; J2795; J3010

== ENCOUNTER 2019-11-22 10:53 | Day surgery (SDC) | payer BC ==
[~2019-11-22 10:53] MED LIST changes: -Acetaminophen TAB* 325 MG PO ONE; +Clindamycin 900 MG/D5W BAG(*) 900 MG/50 ML BAG IVPB ONE; +Dexamethasone IV* 4 MG/ML 1 ML (4 MG) ONE; +Glycopyrrolate IV* 0.2 MG/ML 1 ML VIAL ONE; +Ketorolac INJ* 30 MG/ML 1 ML VIAL ONE; +Midazolam* 1 MG/ML 2 ML VIAL (2 MG) ONE; +Ondansetron INJ* 2 MG/ML VIAL ONE; +Propofol* 10 MG/ML 20 ML BTL ONE; +Rocuronium* 10 MG/ML VIAL ONE; -Tranexamic Acid 1,000 MG in NS 0.9% 50 ML* (outpatient use) IV SCH; -celeCOXIB CAP* 200 MG PO ONE; +fentaNYL* 50 MCG/ML 2 ML VIAL (100 MCG VIAL) ONE
[2019-11-22] MEDS ORDERED: Bupivacaine 0.5%* 50 ML MDV VIAL ONE (12:11)
[2019-11-22] MEDS ORDERED: Naloxone* 0.4 MG/ML 1 ML VIAL IV PRN (13:11)
[2019-11-22] MEDS ORDERED: fentaNYL* 50 MCG/ML 2 ML VIAL (100 MCG VIAL) ONE (14:23)
[2019-11-22] MEDS ORDERED: oxyCODONE TAB* 5 MG TAB ONE (14:23)
[2019-11-22] MEDS: oxyCODONE TAB* 5 MG TAB PO PRN ×2 (14:27→14:32)
[2019-11-22] MEDS: fentaNYL* 50 MCG/ML 2 ML VIAL (100 MCG VIAL) IV PRN ×2 (14:28→14:37)
[2019-11-22 14:33] VITALS: BP 167/117
--- NOTE | 2019-11-22 22:39 | OP ---
DATE OF OPERATION: 11/22/19 - [facility] DATE OF : 56 SURGEON: Roel Kang MD MEDICATION NURSE: RITESH Langford PRE-OP DIAGNOSIS: Bilateral inguinal hernia. POST-OP DIAGNOSIS: Bilateral inguinal hernia. OPERATIVE PROCEDURE: Repair of bilateral inguinal hernia with mesh, robotic. INDICATIONS FOR PROCEDURE: Bilateral inguinal hernia. Risks included but not limited to bleeding, infection, injury to intraabdominal contents, recurrence of the hernia, persistence of preoperative symptoms all explained to the patient who seemed to understand and agreed to the procedure and all questions were answered. DESCRIPTION OF PROCEDURE: The patient was taken to the operating room and placed supine. Preoperative antibiotics had been given. After the successful induction of general endotracheal anesthesia, the abdomen was prepped and draped in sterile fashion. Time-out was performed indicating correct procedure , correct patient. A left upper quadrant trocar was placed under direct visualization of the camera using bladeless Optiview trocar. A pneumo- peritoneum was achieved to 12 mmHg. Camera was placed in the abdomen. The abdomen was scanned. There was no obvious injury from trocar placement. An upper midline and right upper quadrant trocar were placed respectively under direct visualization of the camera and the initial bladeless Optiview trocar was replaced with third 8 mm robotic trocar. The patient was placed in a slight Trendelenburg position. Two groin hernias were noted as expected preoperatively. A right and left anatomically ProGrip mesh were placed in the abdomen along with 2 sutures. The robot was brought in and then docked. The right side was approached first and the peritoneum was taken down and the hernia sac was gently dissected free from the cord. It was a large hernia sac and there was a large cord lipoma associated with this indirect hernia. The mesh was placed over the hemipelvis covering the femoral direct and indirect spaces. The cord structures were identified avoided prior to placing the mesh. The left side was then approached and the peritoneum was taken down and the hernia sac was gently dissected free from the cord. These structures were identified and avoided. The mesh was placed over the hemipelvis covering the femoral direct and indirect spaces. This was a indirect hernia on the side as well. The peritoneum was closed using a running 3-0 V-Loc suture. One of the sutures broke and a second 3-0 V-Loc had to be brought in on the left side. Both ProGrip meshes sat well in the pelvis and did not fold with closure of the peritoneum. The abdomen was scanned. No obvious injuries were noted. All needles were removed. The instruments were removed. Pneumoperitoneum was released from the abdomen. The trocars were removed after the robot was undocked and the skin of these sites were closed with 3-0 Monocryl. Glue was applied to the skin. The patient tolerated the procedure well. He was extubated and taken to the recovery room in stable condition. [id number]/[facility] #: [id number] [place]
== END 2019-11-22 16:00 | disposition home or self-care (01) ==
LOC: OR 10:53
PROVIDERS: ATTEND Surgery
DX: K40.20 Bilateral inguinal hernia, without obstruction or gangrene, not specified as recurrent (principal); I10 Essential (primary) hypertension; K21.9 Gastro-esophageal reflux disease without esophagitis; M15.9 Polyosteoarthritis, unspecified; Z88.0 Allergy status to penicillin; Z91.040 Latex allergy status
CPT/HCPCS: A9270-GY; C1781; J1100; J1885; J2250; J2405; J2704; J3010; J3490